=== PATIENT | female | born 1980 | race Caucasian/White ===

== ENCOUNTER 2021-04-11 13:49 | Observation (INO) ==
[2021-04-11] MEDS ORDERED: TORADOL 30 MG VIAL IVP PRN (15:23)
[2021-04-11] MEDS ORDERED: NORCO 5/325 MG TAB PO PRN (15:28)
[2021-04-11] MEDS ORDERED: MORPHINE SULFATE INJ 2 MG INJ IVP PRN (15:29)
[2021-04-11] MEDS ORDERED: ZANAFLEX PO PRN (15:33)
[2021-04-11] MEDS ORDERED: NS 1000 ML 1,000 ML IV SCH (16:00)
[2021-04-11] MEDS ORDERED: SOLU-Medrol 40 MG VIAL ONE (16:36)
[2021-04-11] MEDS ORDERED: ZANAFLEX ONE (16:36)
[2021-04-11] MEDS ORDERED: NS 1000 ML 1,000 ML ONE (16:36)
--- NOTE | 2021-04-11 16:42 | RAD ---
HISTORYupper back painSTUDYCHEST, 1 VIEWCOMPARISONNone availableFINDINGSThe trachea is midline. The cardiac silhouette is unremarkable . The lungs are clear without focal infiltrate or effusion. The bony thorax is unremarkable.[ ]IMPRESSIONNo acute cardiopulmonary disease.Electronically signed by: TOM RED (Apr 11, 2021 16:40:32)
[2021-04-11 16:45] VITALS: BMI 40.4
[2021-04-11 16:45] LABS: BASOPHILS # (AUTO) 0.1 X10^3/uL (0.0-0.1); BASOPHILS % (AUTO) 0.8 % (0.2-1.0); EOSINOPHILS # (AUTO) 0.2 x10^3/uL (0.0-0.2); EOSINOPHILS % (AUTO) 1.5 % (0.9-2.9); HEMATOCRIT 44.5 % (36.0-47.0); HEMOGLOBIN 15.6 g/dL (12.0-16.0); LYMPHOCYTES # (AUTO) 4.1 X10^3/uL (1.3-2.9); LYMPHOCYTES % (AUTO) 37.2 % (21.0-51.0); MEAN CORPUSCULAR HGB CONC 35.2 g/dL (33.0-35.0); MEAN CORPUSCULAR VOLUME 88.2 fL (80.0-100.0); MEAN PLATELET VOLUME 8.6 fL (7.4-11.0); MONOCYTES # (AUTO) 0.6 x10^3/uL (0.3-0.8); NEUTROPHILS # (AUTO) 6.2 x10^3/uL (2.2-4.8); NEUTROPHILS % (AUTO) 55.5 % (42.0-75.0); PLATELET COUNT 347 X10^3/uL (150.0-450.0); RED BLOOD COUNT 5.04 X10^6/uL (3.5-5.4); RED CELL DISTRIBUTION WIDTH 13.1 % (11.6-16.5); WHITE BLOOD COUNT 11.1 X10^3/uL (3.6-10.0)
[2021-04-11 16:55] LABS: ALANINE AMINOTRANSFERASE 34 Units/L (12-78); ALBUMIN 4.5 g/dL (3.4-5.0); ALKALINE PHOSPHATASE 79 Units/L (46-116); ASPARTATE AMINO TRANSFERASE 13 Units/L (15-37); BLOOD UREA NITROGEN 13 mg/dL (7-18); CALCIUM 9.8 mg/dL (8.5-10.1); CHLORIDE 103 mmol/L (98-107); COR NA(FOR HYPERGLY) 141 mmol/L (136-145); CREATININE 0.72 mg/dL (0.55-1.02); SODIUM 139 mmol/L (136-145); TOTAL PROTEIN 7.8 g/dL (6.4-8.2); eGFR NON BLACK RACES > 60 (>60)
[2021-04-11 19:04] LABS: BILIRUBIN,URINE NEGATIVE (NEGATIVE); BLOOD/HEMOGLOBIN,URINE NEGATIVE (NEGATIVE); GLUCOSE, URINE 3+ (NEGATIVE); KETONES,URINE NEGATIVE (NEGATIVE); LEUKOCYTE ESTERASE ,URINE NEGATIVE (NEGATIVE); NITRITES,URINE NEGATIVE (NEGATIVE); PROTEIN,URINE NEGATIVE (NEGATIVE); UROBILINOGEN,URINE NORMAL (NORMAL)
[2021-04-11 19:05] LABS: APPEARANCE,URINE CLEAR (CLEAR); COLOR,URINE YELLOW (YELLOW)
[2021-04-11] MEDS ORDERED: SNACK - Diabetic Appropriate PO SCH (20:00)
[2021-04-11] MEDS: SOLU-Medrol 40 MG VIAL IVP SCH (22:13)
[2021-04-11] MEDS: HumuLIN R SUBCUT PRN (22:23)
[2021-04-12] MEDS: SOLU-Medrol 40 MG VIAL IVP SCH (05:54)
[2021-04-12] MEDS: HumuLIN R SUBCUT PRN (06:01)
--- NOTE | 2021-04-12 06:32 | MRI ---
Exam:MRI L SPINE W/O CONTRASTIndication: INTRACTABLE BACK PAINComparison: [None available]Technique:Multiplanar, multisequence imaging of the lumbar spine without IV contrast administration.Findings:[Lumbar spine alignment is normal. Vertebral heights are maintained. No localizing or pathologic marrow signal abnormality within the lumbar spine. No prevertebral paraspinal fluid collection. Conus has a normal termination. No acute inflammatory process within the visualized abdomen or pelvis.At T12-L1 unremarkableAt L1-2 unremarkableAt L2-3 unremarkableAt L3-4 unremarkableAt L4-5 mild broad-based disc bulge and facet arthropathy causes mild spinal canal stenosis with moderate bilateral neural foraminal narrowing.At L5-S1 broad-based disc bulge and facet arthropathy causes no significant spinal canal stenosis with moderate right and mild left-sided neural foraminal narrowing.IMPRESSIONMultilevel discogenic degenerative change and facet arthropathy causing spinal canal and neural foraminal stenosis as described above.Electronically signed by: TOM RED (Apr 12, 2021 06:29:51)
[2021-04-12 09:10] VITALS: BP 113/65
--- NOTE | 2021-04-12 13:56 | DR.H&P ---
H&P - History & Physical for Day of: H&P Date: 04/11/21 - Chief Complaint Chief Complaint: Intractable low back pain - History of Present Illness History of Present Illness: The pt is a 41 y/o WF who presents as a direct admission from Dr. Huitron's [place] office. The pt complains of intractable bilateral low pain pain that has progressively worsened over the last several weeks. The pt complains of pain radiating into the buttocks and lower ext bilaterally. The pt denies any recent injury or musculo-skeletal strain or trauma. The pt is being admitted for further w/u due to outpt tx failure, pain control and further w/u. - Past Medical History Past Medical History: Diabetes - Family History Family Medical History: Diabetes Mellitus, Cancer, [place] - Social History Does patient currently use any type of tobacco product: Yes Have you used tobacco products in the last 12 months: Yes Type of Tobacco Use: Cigarettes Alcohol Use: None Drug Use: None Prescription drug monitoring program results: PDMP reviewed and no concerns identified - Medications Home Medications: codeine Allergy (Verified 04/11/21 16:17) penicillin G Allergy (Verified 04/11/21 16:17) CONTINUE taking the following medications cyclobenzaprine 10 mg PO TID PRN 04/11/21 [History] lisinopril 20 mg PO DAILY 04/11/21 [History] metformin 500 mg PO BID 04/11/21 [History] phendimetrazine tartrate 105 mg PO DAILY 04/11/21 [History] spironolactone 100 mg PO DAILY 04/11/21 [History] New Prescriptions tramadol 50 mg PO Q8H PRN #90 tab MDD 3 04/12/21 [Rx] - Review of Systems Constitutional: No Symptoms Reported Eyes: No Symptoms Reported ENT: No Symptoms Reported Respiratory: No Symptoms Reported Cardiovascular: No Symptoms Reported Gastrointestinal: No Symptoms Reported Genitourinary: No Symptoms Reported Musculoskeletal: See HPI Skin: No Symptoms Reported Neurological: No Symptoms Reported - Physical Exam Vital Signs: Temperature 98.6 F Pulse Rate [Bilateral Radial] 85 Respiratory Rate 20 Blood Pressure [Left Arm] 113/65 O2 Sat by Pulse Oximetry 94 Oriented: Normal Eyes: Normal Ear: Normal Nose: Normal Throat: Normal Respiratory: Clear Throughout Cardiovascular: Normal : Normal Auscultation: Bowel Sounds: Normal Palpation: Normal Tenderness: Normal Skin: Normal Musculoskeletal: Right, Left, Back:Lumbar (Bilaterally paravertebral tenderness to palpation. Exacerbation of bilateral paravertebral pain upon ROM), Back:Paraspinous Mood Description: Calm Affect: Normal Speech Pattern: Clear - Assessment/Plan (1) Intractable low back pain Narrative Support Text: Intractable bilaterally low back with radicular sx's - r/o disc involvement Status: Acute Plan: 1. Admit for OPO. 2. CXR. 3. MRI LS spine without contrast. 4. SSRI coverage. 5. Solumedrol 80mg IV q 8 hrs X 3 doses. 6. Toradol 30mg IV q 6 hours X 3 doses. 7. CMP, CBC, UA C&S. 8. [place] 5/325mg po q 6 hours prn pain. 9. Morphine 2mg IV q 4 hours prn for pain. 10. For further orders see chart. (2) Diabetes mellitus Qualifiers: Diabetes mellitus type: type 2 Narrative Support Text: Hyperglycemia expected to be exacerbated by corticosteroid tx Status: Chronic Plan: SSRI coverage - see above orders - Review H&P Reviewed: Yes Patient was examined?: Yes - Allergies Allergies/Adverse Reactions: Allergies Allergy/AdvReac Type Severity Reaction Status Date / Time codeine Allergy Verified 04/11/21 16:17 penicillin G Allergy Verified 04/11/21 16:17
== END 2021-04-12 10:45 | disposition home or self-care (01) ==
LOC: MED/SURG
PROVIDERS: ADMIT Internal Medicine; ATTEND Internal Medicine
DX: Z20.822 Contact with and (suspected) exposure to COVID-19; M54.5 Low back pain; I10 Essential (primary) hypertension; E11.65 Type 2 diabetes mellitus with hyperglycemia